=== PATIENT | female | born 1960 | race Two or more races ===

== ENCOUNTER 2017-03-14 14:01 | Observation (INO) | payer OTHER ==
--- NOTE | 2017-03-14 15:34 | ER Document Report ---
ED Medical Screen (RME) - General Chief Complaint: Chest Pain Stated Complaint: CHEST PAIN Mode of Arrival: Ambulatory Information source: Patient TRAVEL OUTSIDE OF THE [place] IN LAST 30 DAYS: No - HPI Notes: 03/14/17 15:32 SQUEEZING CP THAT STARTED THIS AM. MILD SOB. NAUSEA. DIAPHORESIS. NO PE RISK FACTORS. LUNGS CLEAR, HEART SOUNDS NORMAL, NO LEG SWELLING. - Related Data Allergies/Adverse Reactions: No Known Allergies Allergy (Verified 11/28/12 17:21) Past Medical History Renal/ Medical History: Denies: Hx Peritoneal Dialysis Review of Systems - Review of Systems -: Yes All other systems reviewed and negative Physical Exam - Vital signs Vitals: Temp Pulse Resp BP Pulse Ox 98.6 F 82 16 128/77 H 97 03/14/17 14:21 03/14/17 14:21 03/14/17 14:21 03/14/17 14:21 03/14/17 14:21 - General General appearance: Appears well - HEENT Head: Normocephalic - Respiratory Respiratory status: No respiratory distress Breath sounds: Normal - Cardiovascular Rhythm: Regular Heart sounds: Normal auscultation - Extremities General lower extremity: Normal inspection - Neurological Neuro grossly intact: Yes - Psychological Associated symptoms: Normal affect - Skin Skin Temperature: Warm Skin Moisture: Dry Course - Vital Signs Vital signs: Temp Pulse Resp BP Pulse Ox 98.6 F 82 16 128/77 H 97 03/14/17 14:21 03/14/17 14:21 03/14/17 14:21 03/14/17 14:21 03/14/17 14:21
[2017-03-14 16:16] LABS: ABSOLUTE EOSINOPHILS # (AUTO) 0.1 10^3/uL (0.0-0.6); ABSOLUTE LYMPHOCYTES (AUTO) 1.8 10^3/uL (0.5-4.7); ABSOLUTE MONOCYTES (AUTO) 0.5 10^3/uL (0.1-1.4); ABSOLUTE NEUT (AUTO) 5.6 10^3/uL (1.7-8.2); BASOPHILS % (AUTO) 0.4 % (0-2); HEMATOCRIT 43.2 % (36.0-47.0); HEMOGLOBIN 14.7 g/dL (12.0-15.5); HGB HCT DIFFERENCE 0.9; LYMPHOCYTES % (AUTO) 22.2 % (13-45); MEAN CORPUSCULAR HEMOGLOBIN 29.4 pg (27.0-33.4); MEAN CORPUSCULAR HGB CONC 34.1 g/dL (32.0-36.0); MEAN CORPUSCULAR VOLUME 86 fl (80-97); MONOCYTES % (AUTO) 6.6 % (3-13); RED BLOOD COUNT 5.01 10^6/uL (3.72-5.28); RED CELL DISTRIBUTION WIDTH 13.7 % (11.5-14.0); SEGMENTED NEUTROPHILS % (AUTO) 69.8 % (42-78)
--- NOTE | 2017-03-14 16:27 | RADIOLOGY REPORT (SQ) ---
EXAM DESCRIPTION: CHEST PA/LAT COMPLETED DATE/TIME: 03/14/2017 4:07 pm REASON FOR STUDY: CP COMPARISON: None. EXAM PARAMETERS: NUMBER OF VIEWS: two views TECHNIQUE: Digital Frontal and Lateral radiographic views of the chest acquired. RADIATION DOSE: NA LIMITATIONS: none FINDINGS: LUNGS AND PLEURA: No opacities, masses or pneumothorax. No pleural effusion. MEDIASTINUM AND HILAR STRUCTURES: No masses or contour abnormalities. HEART AND VASCULAR STRUCTURES: Heart normal size. No evidence for failure. BONES: No acute findings. HARDWARE: None in the chest. OTHER: No other significant finding. IMPRESSION: NO SIGNIFICANT RADIOGRAPHIC FINDING IN THE CHEST. TECHNICAL DOCUMENTATION: JOB ID: [id number] [employer]- All Rights Reserved
[2017-03-14 16:35] LABS: ALANINE AMINOTRANSFERASE 52 U/L (9-52); ALBUMIN 4.7 g/dL (3.5-5.0); ALKALINE PHOSPHATASE 144 U/L (38-126); ANION GAP 13 (5-19); ASPARTATE AMINO TRANSFERASE 45 U/L (14-36); BILIRUBIN,DIRECT 0.4 mg/dL (0.0-0.4); BILIRUBIN,TOTAL 0.9 mg/dL (0.2-1.3); BLOOD UREA NITROGEN 13 mg/dL (7-20); CALCIUM 9.9 mg/dL (8.4-10.2); CARBON DIOXIDE 28 mmol/L (22-30); CHLORIDE 104 mmol/L (98-107); CREATINE KINASE 64 U/L (30-135); CREATININE RESULT 0.58 mg/dL (0.52-1.25); GLUCOSE 123 mg/dL (75-110); POTASSIUM 4.1 mmol/L (3.6-5.0); SODIUM 144.7 mmol/L (137-145); TOTAL PROTEIN 8.7 g/dL (6.3-8.2)
[2017-03-14 16:47] LABS: CREATINE KINASE MB 0.86 ng/mL (<4.55)
[2017-03-14 16:48] LABS: TROPONIN I < 0.012 ng/mL
--- NOTE | 2017-03-14 19:48 | EKG REPORT ---
SEVERITY:- BORDERLINE ECG - SINUS RHYTHM LVH BY VOLTAGE BORDERLINE T ABNORMALITIES, INFERIOR LEADS : Confirmed by: Bashir Pascual MD 14-Mar-2017 19:48:03
--- NOTE | 2017-03-14 20:11 | ER Document Report ---
ED General - General Chief Complaint: Chest Pain Stated Complaint: CHEST PAIN Time Seen by Provider: 03/14/17 18:20 Mode of Arrival: Ambulatory Information source: Patient Notes: 56-year-old female history of hypertension presents with complaints of chest pain. Patient notes it is a squeezing sensation midsternal associated with shortness of breath. Patient notes 3 days ago she had sharp pain on the right side rating to her back which then resolved. Today's pain was lasting for proximally a few hours until she was given nitroglycerin which resolved her pain completely Patient notes tingling sensation in her right hand TRAVEL OUTSIDE OF THE [place] IN LAST 30 DAYS: No - HPI Onset: This morning Onset/Duration: Persistent, Gone Quality of pain: Pressure Severity: Mild Pain Level: 1 Associated symptoms: Chest pain Exacerbated by: Denies Relieved by: Other - Nitroglycerin Similar symptoms previously: No Recently seen / treated by doctor: No - Related Data Allergies/Adverse Reactions: No Known Allergies Allergy (Verified 11/28/12 17:21) Home Medications: Current Home Medications Calcium/Soy/Cohosh/Melatonin [Estroven Nighttime Caplet] 1 tab PO QHS 03/14/17 [ History] Folic Acid 2 mg PO DAILY 03/14/17 [History] Glucosamine/D3/Boswellia Elena [Osteo Bi-Flex Tablet] 1 tab PO QHS 03/14/17 [ History] Ibuprofen 200 mg PO QPM 03/14/17 [History] Methotrexate Sodium [Methotrexate] 6 tab PO SA@1000 03/14/17 [History] Past Medical History - General Information source: Patient - Social History Smoking Status: Never Smoker Cigarette use (# per day): No Chew tobacco use (# tins/day): No Smoking Education Provided: No Frequency of alcohol use: None Drug Abuse: None Family History: Reviewed & Not Pertinent Patient has suicidal ideation: No Renal/ Medical History: Denies: Hx Peritoneal Dialysis Review of Systems - Review of Systems Notes: REVIEW OF SYSTEMS: CONSTITUTIONAL : Denies fever, chills, or sweats. Denies recent illness. EENT: Denies eye, ear, throat, or mouth pain or symptoms. Denies nasal or sinus congestion or discharge. Denies throat, tongue, or mouth swelling or difficulty swallowing. CARDIOVASCULAR: Admits to chest pain RESPIRATORY: Denies cough, cold, or chest congestion. Denies shortness of breath, difficulty breathing, or wheezing. GASTROINTESTINAL: Denies abdominal pain or distention. Denies nausea, vomiting , or diarrhea. Denies blood in vomitus, stools, or per rectum. Denies black, tarry stools. Denies constipation. GENITOURINARY: Denies difficulty urinating, painful urination, burning, frequency, blood in urine, or discharge. FEMALE GENITOURINARY: Denies vaginal bleeding, heavy or abnormal periods, irregular periods. Denies vaginal discharge or odor. MUSCULOSKELETAL: Denies back or neck pain or stiffness. Denies joint pain or swelling. SKIN: Denies rash, lesions or sores. HEMATOLOGIC : Denies easy bruising or bleeding. LYMPHATIC: Denies swollen, enlarged glands. NEUROLOGICAL: Denies confusion or altered mental status. Denies passing out or loss of consciousness. Denies dizziness or lightheadedness. Denies headache. Denies weakness or paralysis or loss of use of either side. Denies problems with gait or speech. Denies sensory loss, numbness, or tingling. Denies seizures. PSYCHIATRIC: Denies anxiety or stress. Denies depression, suicidal ideation, or homicidal ideation. ALL OTHER SYSTEMS REVIEWED AND NEGATIVE. PHYSICAL EXAMINATION: GENERAL: Well-appearing, well-nourished and in no acute distress. HEAD: Atraumatic, normocephalic. EYES: Pupils equal round and reactive to light, extraocular movements intact, conjunctiva are normal. ENT: Nares patent, oropharynx clear without exudates. Moist mucous membranes. NECK: Normal range of motion, supple without lymphadenopathy LUNGS: Breath sounds clear to auscultation bilaterally and equal. No wheezes rales or rhonchi. HEART: Regular rate and rhythm without murmurs ABDOMEN: Soft, nontender, nondistended abdomen. No guarding, no rebound. No masses appreciated. Female : deferred Musculoskeletal: Normal range of motion, no pitting or edema. No cyanosis. NEUROLOGICAL: Cranial nerves grossly intact. Normal speech, normal gait. Normal sensory, motor exams PSYCH: Normal mood, normal affect. SKIN: Warm, Dry, normal turgor, no rashes or lesions noted. Dictation was performed using [email or web address] voice recognition software Physical Exam - Vital signs Vitals: Temp Pulse Resp BP Pulse Ox 98.6 F 82 16 128/77 H 97 03/14/17 14:21 03/14/17 14:21 03/14/17 14:21 03/14/17 14:21 03/14/17 14:21 Course - Re-evaluation Re-evalutation: 03/14/17 22:20 Patient chest pain was resolved with nitroglycerin, she has never had an a cardiac workup therefore I have ordered cardiac enzymes and ACS rule out admission - Vital Signs Vital signs: Temp Pulse Resp BP Pulse Ox 97.8 F 73 16 131/77 H 97 03/14/17 21:58 03/14/17 21:58 03/14/17 21:58 03/14/17 21:58 03/14/17 21:58 - Laboratory Result Diagrams: 03/14/17 15:58 03/14/17 15:58 Laboratory results interpreted by me: 03/14/17 15:58 Glucose 123 H AST 45 H Alkaline Phosphatase 144 H Total Protein 8.7 H - Diagnostic Test Radiology reviewed: Image reviewed, Reports reviewed - EKG Interpretation by Me EKG shows normal: Sinus rhythm, [place], Intervals, QRS Complexes Discharge - Discharge Clinical Impression: Chest pain Qualifiers: Chest pain type: unspecified Qualified Code(s): R07.9 - Chest pain, unspecified Condition: Stable Disposition: ADMITTED OBSERVATION Admitting Provider: Hospitalist Unit Admitted: Telemetry
[2017-03-14] MEDS ORDERED: DIAZEPAM 5 MG TABLET PO PRN (20:26)
[2017-03-14] MEDS ORDERED: NITROGLYCERIN 0.4 MG/TAB 25 TAB/BOTTLE SL PRN (20:26)
[2017-03-14] MEDS ORDERED: CALCIUM CARBONATE 500 MG TAB.CHEW PO PRN (20:28)
[2017-03-14] MEDS ORDERED: ATORVASTATIN CALCIUM 80 MG TABLET PO SCH (22:00)
[2017-03-14 22:11] LABS: CREATINE KINASE MB 0.68 ng/mL (<4.55)
[2017-03-14 22:15] LABS: TROPONIN I < 0.012 ng/mL
[2017-03-14] MEDS ORDERED: INFLUENZA ADLT QUAD (36MOS+) 2017-18 VAC 0.5 ML SYR IM PRN (22:29)
[2017-03-14] MEDS: HEPARIN SOD (PORCINE) 5,000 UNIT/ML 1 ML SYRINGE SUBCUT SCH (23:09)
[2017-03-15 05:00] LABS: CHOLESTEROL 201.74 mg/dL (0-200); CREATINE KINASE 46 U/L (30-135); Direct HDL 59 mg/dL (>40); TRIGLYCERIDES 74 mg/dL (<150)
[2017-03-15 05:10] LABS: DIRECT LDL 127 mg/dL (<100)
[2017-03-15 05:11] LABS: CREATINE KINASE MB 0.52 ng/mL (<4.55)
[2017-03-15 05:13] LABS: TROPONIN I < 0.012 ng/mL
[2017-03-15] MEDS: HEPARIN SOD (PORCINE) 5,000 UNIT/ML 1 ML SYRINGE SUBCUT SCH ×2 (05:31→13:54)
--- NOTE | 2017-03-15 05:33 | PDOC H&P ---
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 Associated with nausea without vomiting no diaphoresis palpitations or shortness of breath. He is unable to identify exacerbating factors the nitroglycerin received in the emergency room relieved pain 100%. She denies previous episode, recent change in medications and otherwise feels well. Initial workup in the emergency room was unremarkable and referred to the hospitalist for observation Past Medical History Psychiatric Medical History: Denies: Depression Social History Information Source: Patient Lives with: Spouse/Significant other Smoking Status: Never Smoker Frequency of Alcohol Use: None Hx Recreational Drug Use: No Drugs: None Hx Prescription Drug Abuse: No - Advance Directive Resuscitation Status: Full Code Family History Family History: CAD Parental Family History Reviewed: Yes Children Family History Reviewed: Yes Sibling(s) Family History Reviewed.: Yes Medication/Allergy Home Medications: Calcium/Soy/Cohosh/Melatonin [Estroven Nighttime Caplet] 1 tab PO QHS 03/14/17 Folic Acid 2 mg PO DAILY 03/14/17 Glucosamine/D3/Boswellia Elena [Osteo Bi-Flex Tablet] 1 tab PO QHS 03/14/17 Ibuprofen 200 mg PO QPM 03/14/17 Methotrexate Sodium [Methotrexate] 6 tab PO SA@1000 03/14/17 Allergies/Adverse Reactions: No Known Allergies Allergy (Verified 11/28/12 17:21) Review of Systems Constitutional: ABSENT: chills, fever(s), headache(s), weight gain, weight loss Eyes: ABSENT: visual disturbances Ears: ABSENT: hearing changes Cardiovascular: ABSENT: chest pain, dyspnea on exertion, edema, orthropnea, palpitations Respiratory: ABSENT: cough, hemoptysis Gastrointestinal: ABSENT: abdominal pain, constipation, diarrhea, hematemesis, hematochezia, nausea, vomiting Genitourinary: ABSENT: dysuria, hematuria Musculoskeletal: ABSENT: joint swelling Integumentary: ABSENT: rash, wounds Neurological: ABSENT: abnormal gait, abnormal speech, confusion, dizziness, focal weakness, syncope Psychiatric: ABSENT: anxiety, depression, homidical ideation, suicidal ideation Endocrine: ABSENT: cold intolerance, heat intolerance, polydipsia, polyuria Hematologic/Lymphatic: ABSENT: easy bleeding, easy bruising Physical Exam Vital Signs: Temp Pulse Resp BP Pulse Ox 98.0 F 69 20 110/56 L 98 03/15/17 04:15 03/15/17 04:15 03/15/17 04:15 03/15/17 04:15 03/15/17 04:15 Intake & Output 03/13/17 03/14/17 03/15/17 11:59 11:59 11:59 Weight 78.4 kg General appearance: PRESENT: no acute distress, well-developed, well-nourished Head exam: PRESENT: atraumatic, normocephalic Eye exam: PRESENT: conjunctiva pink, EOMI, PERRLA. ABSENT: scleral icterus Ear exam: PRESENT: normal external ear exam Mouth exam: PRESENT: moist, tongue midline Neck exam: ABSENT: carotid bruit, JVD, lymphadenopathy, thyromegaly Respiratory exam: PRESENT: clear to auscultation kirstin. ABSENT: rales, rhonchi, wheezes Cardiovascular exam: PRESENT: RRR. ABSENT: diastolic murmur, rubs, systolic murmur Pulses: PRESENT: normal dorsalis pedis pul Vascular exam: PRESENT: normal capillary refill GI/Abdominal exam: PRESENT: normal bowel sounds, soft. ABSENT: distended, guarding, mass, organolmegaly, rebound, tenderness Rectal exam: PRESENT: deferred Extremities exam: PRESENT: full ROM. ABSENT: calf tenderness, clubbing, pedal edema Neurological exam: PRESENT: alert, awake, oriented to person, oriented to place , oriented to time, oriented to situation, CN II-XII grossly intact. ABSENT: motor sensory deficit Psychiatric exam: PRESENT: appropriate affect, normal mood. ABSENT: homicidal ideation, suicidal ideation Skin exam: PRESENT: dry, intact, warm. ABSENT: cyanosis, rash Results Laboratory Results: 03/15/17 03:35 Triglycerides 74 Cholesterol 201.74 H LDL Cholesterol Direct 127 H VLDL Cholesterol 15.0 HDL Cholesterol 59 03/14/17 03/15/17 03/15/17 21:25 03:35 03:35 Creatine Kinase 46 CK-MB (CK-2) 0.68 0.52 Troponin I < 0.012 < 0.012 Impressions: Chest X-Ray 03/14/17 15:30 IMPRESSION: NO SIGNIFICANT RADIOGRAPHIC FINDING IN THE CHEST. Assessment & Plan - Diagnosis (1) Atypical chest pain Is this a current diagnosis for this admission?: Yes Plan: Atypical chest pain though the patient's pain is atypical there are multiple risk factors for coronary artery disease and subsequently will observe and evaluation of acute coronary syndrome versus coronary artery disease with anginal equivalents. Cardiac monitoring blood pressure Q6 hours ,TSH, lipid profile, serial cardiac enzymes and cardiac stress test (2) Dermatomyositis Is this a current diagnosis for this admission?: Yes Plan: Possibility of carditis though often normal dermatomyositis of obtain ESR and cardiac enzymes however should be elevated if secondary to dermatomyositis flare. - Time Time Spent: 30 to 50 Minutes
[2017-03-15] MEDS ORDERED: DOCUSATE SODIUM 100 MG CAPSULE PO SCH (10:00)
[2017-03-15] MEDS ORDERED: ALBUTEROL SULFATE 0.083% NEB 2.5 MG/3 ML AMPUL NEB ONE (10:58)
[2017-03-15] MEDS ORDERED: REGADENOSON INJ 0.4 MG/5 ML DISP.SYRIN IV ONE (10:58)
[2017-03-15] MEDS ORDERED: AMINOPHYLLINE INJ/PF 250 MG/10 ML SDV IV ONE (11:00)
[2017-03-15 11:39] LABS: CREATINE KINASE MB 0.47 ng/mL (<4.55)
[2017-03-15 11:43] LABS: TROPONIN I < 0.012 ng/mL
--- NOTE | 2017-03-15 12:35 | DRAGON STRESS TEST REPORT ---
INTRAVENOUS LEXISCAN CARDIOLITE STRESS TEST USING SINGLE PHOTON EMMISION COMPUTERIZED TOMOGRAPHIC. DATE OF PROCEDURE: March 15, 2017 INDICATION : Chest pain CARDIAC RISK FACTORS: Dyslipidemia, family history of CAD RESTING EKG: Sinus rhythm, no baseline ST-T wave changes noted. STRESS EKG: No significant changes noted with LexiScan bolus REASON FOR TERMINATION: Protocol. PROCEDURE REPORT: Baseline heart rate 78 beats per minute with blood pressure of 124/76. Patient had no significant complaints. Heart rate at 2 minutes post bolus 111 with a blood pressure of 147/67. 3 minutes post bolus heart rate 106 with blood pressure of 138/70. No significant EKG changes were noted. Patient had no significant complaints during the procedure or postprocedure. Patient injected with Aminophyllin 75 mg at 3 minutes or later after Lexiscan bolus. CONCLUSIONS: Normal EKG and hemodynamic response to IV LexiScan. NUCLEAR DATA: At rest the patient was given 12.54 millicuries of technetium 99 sestamibi injected intravenously. As per protocol rest gated SPECT images were obtained. Subsequently the patient was given intravenous LexiScan at a dose of 0.4 mg in 5 mL intravenously, followed by flush with normal saline. Subsequently the stress dose of 30.1 millicuries of technetium 99 sestamibi was injected intravenously. As per protocol stress gated images were obtained. NUCLEAR INTERPRETATION: Both raw and processed data were used for interpretation. Visual, qualitative, computer-generated quantitative data was used. There was good myocardial uptake of technetium compound. Motion artifact and soft tissue attenuations were noted. Increased visceral uptake was noted. No definitive areas of transient perfusion defect noted. No definitive areas of fixed perfusion defect or scars noted. EKG gated imaging showed LV EF at 82 %, rest and stress gated EF similar visually. T. I D. ratio was 0.97. Lung heart ratio noted to be within normal limits 0.30. No significant extracardiac and abnormal radiotracer activities were noted. RV free wall uptake was noted to be WNL. IMPRESSION: Also refer to comments under nuclear interpretation. Also test results needs to be interpreted in the context of pretest probability. 1. There is no definitive scintigraphic evidence of LexiScan induced myocardial ischemia. 2. There is no definitive scintigraphic evidence of myocardial infarction/scar. 3. EKG gated imaging shows left ventricular ejection fraction of approximately 82 %. 4. Clinical correlation requested as occasionally single vessel disease or balanced ischemia could be missed. In approximately 10% of the cases Lexiscan may not cause adequate vasodilatory stress. RECOMMENDATIONS: Aggressive risk factor modification, medical therapy. Clinical correlation with echocardiogram derived ejection fraction. Inability to exercise by itself can lead to increased cardiovascular event risks. Consider cardiology consultation and or follow-up if clinically indicated. I AM AVAILABLE FOR CARDIOLOGY CONSULTATION AND FOLLOWUP IF REQUESTED BY PMD Gorge Laird M.D., [employer], Board certified in cardiovascular diseases, Nuclear cardiology, Echocardiography Cardiac CT and cardiac MRI Ph. [phone] [facility]
[2017-03-15 13:42] VITALS: BP 140/70
--- NOTE | 2017-03-15 14:39 | PDOC DISCHARGE SUMMARY ---
General - Admit/Disc Date/PCP Admission Date/Primary Care Provider: 03/14/17 20:26 Discharge Date: 03/15/17 - Discharge Diagnosis (1) Atypical chest pain Is this a current diagnosis for this admission?: Yes Summary: Pt was admitted for left sided chest pain of sudden onset that was relieved with nitroglycerin in the ED. She was admitted under Chest Pain protocol. Serial cardiac enzymes were negative. Stress testing demonstrated a normal EKG and hemodynamic response to IV LexiScan. She remained chest pain free throughout the remainder of her admission. She is being discharged on ASA and Atorvastatin. (2) Chest pain Summary: As above. - Additional Information Resuscitation Status: Full Code Discharge Diet: Regular Discharge Activity: Activity As Tolerated, Balance Activity w/Rest Home Medications: Calcium/Soy/Cohosh/Melatonin [Estroven Nighttime Caplet] 1 tab PO QHS 03/14/17 Folic Acid 2 mg PO DAILY 03/14/17 Glucosamine/D3/Boswellia Elena [Osteo Bi-Flex Tablet] 1 tab PO QHS 03/14/17 Ibuprofen 200 mg PO QPM 03/14/17 Methotrexate Sodium [Methotrexate] 6 tab PO SA@1000 03/14/17 Aspirin [Ecotrin 81 mg EC Tablet] 81 mg PO DAILY #1 pkg 03/15/17 Atorvastatin Calcium [Lipitor 80 mg Tablet] 80 mg PO QHS #30 tablet 03/15/17 History of Present Illness Patient complains of: Chest pain History of Present Illness: Per H&P by Dr. 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 Associated with nausea without vomiting no diaphoresis palpitations or shortness of breath. he is unable to identify exacerbating factors the nitroglycerin received in the emergency room relieved pain 100%. She denies previous episode, recent change in medications and otherwise feels well. Initial workup in the emergency room was unremarkable and referred to the hospitalist for observation. Hospital Course Hospital Course: Admitted under chest pain protocol. Initial work up was essentially unremarkable ; serial cardiac enzymes remained normal. Nuclear stress testing was reassuring. She has been pain free since receiving nitroglycerin in the emergency department. Will discharge home on atorvastatin and aspirin. Physical Exam Vital Signs: Temp Pulse Resp BP Pulse Ox 98.2 F 97 18 140/70 H 97 03/15/17 13:37 03/15/17 13:37 03/15/17 13:37 03/15/17 13:37 03/15/17 13:37 Intake & Output 03/14/17 03/15/17 03/16/17 06:59 06:59 06:59 Intake Total 6 Output Total 0 Balance 6 Weight 78.4 kg General appearance: PRESENT: no acute distress, well-developed, well-nourished Head exam: PRESENT: atraumatic, normocephalic Eye exam: PRESENT: conjunctiva pink, EOMI, PERRLA. ABSENT: scleral icterus Ear exam: PRESENT: normal external ear exam Mouth exam: PRESENT: moist, tongue midline Neck exam: ABSENT: carotid bruit, JVD, lymphadenopathy, thyromegaly Respiratory exam: PRESENT: clear to auscultation kirstin, symmetrical, unlabored. ABSENT: rales, rhonchi, wheezes Cardiovascular exam: PRESENT: RRR, +S1, +S2. ABSENT: diastolic murmur, rubs, systolic murmur, tachycardia Pulses: PRESENT: normal dorsalis pedis pul Vascular exam: PRESENT: normal capillary refill GI/Abdominal exam: PRESENT: normal bowel sounds, soft. ABSENT: distended, guarding, mass, organolmegaly, rebound, tenderness Rectal exam: PRESENT: deferred Extremities exam: PRESENT: full ROM. ABSENT: calf tenderness, clubbing, pedal edema Neurological exam: PRESENT: alert, awake, oriented to person, oriented to place , oriented to time, oriented to situation, CN II-XII grossly intact. ABSENT: motor sensory deficit Psychiatric exam: PRESENT: appropriate affect, normal mood. ABSENT: homicidal ideation, suicidal ideation Skin exam: PRESENT: dry, intact, warm. ABSENT: cyanosis, rash Results Laboratory Results: 03/15/17 03:35 Triglycerides 74 Cholesterol 201.74 H LDL Cholesterol Direct 127 H VLDL Cholesterol 15.0 HDL Cholesterol 59 03/14/17 03/15/17 03/15/17 21:25 03:35 03:35 Creatine Kinase 46 CK-MB (CK-2) 0.68 0.52 Troponin I < 0.012 < 0.012 03/15/17 11:05 Creatine Kinase CK-MB (CK-2) 0.47 Troponin I < 0.012 Impressions: Chest X-Ray 03/14/17 15:30 IMPRESSION: NO SIGNIFICANT RADIOGRAPHIC FINDING IN THE CHEST. Qualifiers PATEINT BEING DISCHARGED WITH ANY OF THE FOLLOWING DIAGNOSIS?: No
[2017-03-16] MEDS ORDERED: METHOTREXATE SODIUM 2.5 MG TABLET PO SCH (10:00)
== END 2017-03-15 11:50 | disposition home or self-care (01) ==
LOC: ER 14:01 → UNDOADMOB 20:24 → EH 20:24 → 3W 22:20
PROVIDERS: ADMIT Internal Medicine; ATTEND Internal Medicine
DX: R07.89 Other chest pain (principal); M33.90 Dermatopolymyositis, unspecified, organ involvement unspecified; R11.0 Nausea; R06.02 Shortness of breath; R20.2 Paresthesia of skin; R61 Generalized hyperhidrosis; Z79.899 Other long term (current) drug therapy; Z79.82 Long term (current) use of aspirin; Z82.49 Family history of ischemic heart disease and other diseases of the circulatory system
CPT/HCPCS: 93005; 99285; 36415 ×2; 82553 ×2; 82550 ×2; 85025; 85652; 80053; 84484 ×2; 80061; 83880; 93017; 71020; 78452; 93010; A9500; J2785; J3490 ×2; J0280; Q9969